=== PATIENT | male | born 1995 | race Caucasian/White ===

== ENCOUNTER 2018-04-29 22:53 | Emergency (ER) | payer OTHER ==
[~2018-04-29] VITALS: Ht 172.7 cm; Wt 88.9 kg
[~2018-04-29 22:53] MED LIST: BENADRYL 50 MG50 MG PO; GUAIFENESIN-COD10 ML PO; MOTRIN 600 MG600 MG PO; NASONEX17 GM NASB; PRILOSEC40 MG PO; REGLAN10 MG PO
--- NOTE | 2018-04-29 23:51 | RADIOLOGY REPORT ---
EXAMINATION: XR ELBOW, RIGHT CLINICAL INFORMATION: Injury. COMPARISON: None TECHNIQUE: AP, lateral, and oblique views of the right elbow. FINDINGS: There is an oblique oriented, comminuted fracture across the distal humeral shaft with half shaft posterior displacement of the distal fracture fragment and mild apex dorsal angulation. No additional fractures are identified. The elbow joint is intact. Regional soft tissue swelling noted. No radiopaque foreign body. IMPRESSION: Oblique oriented, comminuted fracture across the distal right humeral shaft with half shaft posterior displacement of the distal fracture fragment and slight apex dorsal angulation.
--- NOTE | 2018-04-29 23:59 | ED GENERAL ADULT ---
History of Present Illness General Chief Complaint: Upper Extremity Injury Stated Complaint: "?RT ELBOW INJURY" Source: patient Exam Limitations: no limitations Vital Signs & Intake/Output Vital Signs & Intake/Output Vital Signs Date Time Temp Pulse Resp B/P B/P Pulse O2 O2 Flow FiO2 Mean Ox Delivery Rate 04/30 0127 98.9 116 18 109/51 98 Room Air 04/29 2301 98.9 95 18 88/50 99 Room Air ED Intake and Output 04/30 0000 04/29 1200 Intake Total Output Total Balance Patient 196 lb Weight Weight Reported by Patient Measurement Method Allergies Coded Allergies: NO KNOWN ALLERGIES (05/15/13) Reconcile Medications Diphenhydramine HCl (Benadryl) 50 MG CAPSULE 1 CAP PO Q6PRN PRN headache take with the Reglan and ibuprofen as needed for headache Ibuprofen (Motrin 600 MG Tab) 600 MG TABLET 1 TAB PO Q6P PRN headache with food take with the Benadryl and Reglan prescribed Ibuprofen 800 MG TABLET 1 TAB PO TID PRN pain METOCLOPRAMIDE HCL (Reglan) 10 MG TABLET 1 TAB PO Q6PRN PRN headache take with the Benadryl and ibuprofen for relief of headache Mometasone Furoate (Nasonex) 50 MCG SPRAY.PUMP 2 SPRAY NASB DAILY congestion Omeprazole (Prilosec) 40 MG ECC 40 MG PO DAILY IBS (Reported) Oxycodone HCl/Acetaminophen (Percocet 5-325 MG Tablet) 5 MG-325 MG TABLET 1 TAB PO Q4 HRS NEEDED PRN pain Robitussin AC (Guaifenesin-Codeine Syrup) 200 MG-20 MG/10 ML LIQUID 10 ML PO Q6HR PRN COUGH Triage Note: PT FROM HOME C/O OF RIGHT ELBOW INJURY AROUND 2214. PT STATES HE WAS ARM WRESTLING WITH HIS BROTHER AND BENT THE INCORRECT WAY, PT STATED HE HEARD A SNAP. PT A&0X3. PT DECLINING MEDS OR ICE PACK IN TRIAGE. SLING APPLIED TO PTS RIGTH ELBOW. VSS. Triage Nurses Notes Reviewed? yes Onset: Abrupt Duration: minute(s): Timing: single episode today HPI: 23-year-old male with a history of asthma, migraine, IBS presenting with right upper extremity pain status post arm wrestling with his brother just prior to arrival. Patient reports that while arm wrestling with his brother his arm was abruptly snapped backwards and he heard a loud pop. Denies numbness or paresthesias. (Earnestine Stephens) Past History Travel History Traveled to [place] past 21 day No Medical History Any Pertinent Medical History? see below for history Neurological: migraine Respiratory: asthma Gastrointestinal: GERD, irritable bowel syndrome Surgical History Surgical History: non-contributory Psychosocial History What is your primary language Kosovan Tobacco Use: Quit >30 days ago Family History Hx Contributory? No (Earnestine Stephens) Review of Systems Review of Systems Constitutional: Reports: no symptoms. EENTM: Reports: no symptoms. Respiratory: Reports: no symptoms. Cardiovascular: Reports: no symptoms. GI: Reports: no symptoms. Genitourinary: Reports: no symptoms. Musculoskeletal: Reports: see HPI. Skin: Reports: no symptoms. Neurological/Psychological: Reports: no symptoms. Hematologic/Endocrine: Reports: no symptoms. Immunologic/Allergic: Reports: no symptoms. All Other Systems: Reviewed and Negative (Earnestine Stephens) Physical Exam Physical Exam General Appearance: well developed/nourished, no apparent distress, alert, awake Comments: Gen.: Well-nourished, well-developed, no acute distress. Head: Normocephalic, atraumatic. Eyes: Normal inspection bilaterally Ears: Normal inspection bilaterally Nose: Normal inspection Neck: Normal inspection Lungs: clear to auscultation bilaterally, normnal breath sounds Heart: regular rate and rhythm Abdomen: soft and non-tender EXTREMITIES: Right upper extremity Inspection: Mild deformity of the distal humeral Palpation: Tender to palpation along the distal humeral ROM: Unable to range the elbow joint, unrestricted range of motion at the shoulder and wrist joint Sensation: intact, specifically sensation is intact to the radial nerve, no wrist drop noted on exam Motor strength: Unable to assess for motor strength at the elbow joint, motor strength is 5 out of 5 at the wrist Pulse: 2+ radial pulse Neurologic: alert and oriented x3, steady gait Skin: warm and dry Psychiatric: Normal mood and affect, no apparent delusions or hallucinations, behavior appropriate Core Measures ACS in differential dx? No CVA/TIA Diagnosis: No Sepsis Present: No Sepsis Focused Exam Completed? No (Earnestine Stephens) Progress Differential Diagnoses I considered the following diagnoses in my evaluation of the patient: [Fracture versus dislocation versus tendon injury versus nerve injury versus ligament injury versus vascular injury] Plan of Care: Current Medications Sig/Yael Start time Last Medication Dose Stop Time Status Admin Oxycodone/ 1 TAB ONCE ONE 04/30 115 UNVr Acetaminophen 04/30 116 (Percocet) XR IMPRESSION: Oblique oriented, comminuted fracture across the distal right humeral shaft with half shaft posterior displacement of the distal fracture fragment and slight apex dorsal angulation. Discussed with Dr. Neal from orthopedics. At this time he recommended against reduction. Patient will be placed in a long arm posterior splint and will follow up with orthopedics. Counseled on supportive care and strict return precautions. Initial ED EKG: none (Earnestine Stephens) Departure Departure Disposition: HOME OR SELF CARE Condition: Stable Clinical Impression Primary Impression: Closed right humeral fracture Referrals: Ana MICHELE,Constantino (PCP/Family) Mal MICHELE,Perry Holman Additional Instructions: Use ibuprofen as needed for pain. Use Percocet as needed for breakthrough pain. Follow-up with orthopedics for reevaluation. Return to the emergency department for any new or worsening symptoms. Departure Forms: Customer Survey General Discharge Information Prescriptions: Current Visit Scripts Ibuprofen 1 TAB PO TID PRN pain #90 TAB Oxycodone HCl/Acetaminophen (Percocet 5-325 MG Tablet) 1 TAB PO Q4 HRS NEEDED PRN pain #12 TAB (Earnestine Stephens) PA/GEAR TESTER Co-Sign Statement Statement: ED Attending supervision documentation- [] I saw and evaluated the patient. I have also reviewed all the pertinent lab results and diagnostic results. I agree with the findings and the plan of care as documented in the PA's/GEAR TESTER's documentation. [X] I have reviewed the ED Record and agree with the PA's/GEAR TESTER's documentation. [] Additions or exceptions (if any) to the PAs/GEAR TESTER's note and plan are summarized below: [] (Octavio MICHELE,Rosemarie) Procedures Splinting Location: right upper extremity Manual Alignment Performed: No Hand-Made Type: orthoglass Splint: long arm posterior Splint Applied By: splint applied by me Pre-Proc Neuro Vasc Exam: normal Post-Proc Neuro Vasc Exam: normal (Earnestine Stephens) Critical Care Note Critical Care Note Critical Care Time: non-applicable (Earnestine Stephens)
[2018-04-30] MEDS ORDERED: IBUPROFEN800 M1 PO (01:15)
[2018-04-30] MEDS ORDERED: PERCOCET 5-3251 EACH PO (01:15)
[2018-04-30 01:27] VITALS: BP 109/51
== END 2018-04-30 02:01 ==
LOC: ERH 22:53
DX: S42.351A Displaced comminuted fracture of shaft of humerus, right arm, initial encounter for closed fracture (principal); Z87.891 Personal history of nicotine dependence; X50.0XXA Overexertion from strenuous movement or load, initial encounter; Y93.89 Activity, other specified; Y92.9 Unspecified place or not applicable
CPT/HCPCS: 73080-RT; 96372; J1885